=== PATIENT | female | born 1985 | race Two or more races ===

== ENCOUNTER 2023-09-18 09:25 | Outpatient (CLI) | payer OTHER | END 2023-09-18 09:30 | disposition home or self-care (01) | LOC: SONOGRAMA 09:25 | PROVIDERS: ATTEND Pathology Anatomic Pathology & Clinical Pathology | DX: D34 Benign neoplasm of thyroid gland (principal); E07.89 Other specified disorders of thyroid; E04.2 Nontoxic multinodular goiter ==

== ENCOUNTER 2024-01-11 05:32 | Inpatient (IN) | payer OTHER ==
[~2024-01-11] VITALS: Ht 165.1 cm; Wt 148.3 kg
[~2024-01-11 05:32] MED LIST: ALLEGRA ALLERG180 MG PO; BACLOFEN10 MG PO; MONTELUKAST SOD10 MG PO; PANTOPRAZOLE SO40 MG PO; PEPCID40 MG PO; PROZAC40 MG PO; SOVUNA200 MG PO; TRAM1TAB98 PO; XOPENEX HFA15 GM IH
[2024-01-11] MEDS ORDERED: DEXAMETHASONE SODIUM PHOSPHATE 4 MG/ML VIAL IV ONE (08:00)
[2024-01-11] MEDS ORDERED: ENALAPRILAT DIHYDRATE 1.25 MG/ML VIAL IV PRN (08:45)
[2024-01-11] MEDS ORDERED: ONDANSETRON HCL 2 MG/ML VIAL IV PRN (08:45)
[2024-01-11] MEDS ORDERED: TRAMADOL HCL 50 MG TABLET PO SCH (09:00)
[2024-01-11] MEDS ORDERED: ACETAMINOPHEN 500 MG GEL..CAP PO SCH (09:00)
[2024-01-11] MEDS ORDERED: MILI 0.25-0.031 EACH (09:15)
[2024-01-11] MEDS ORDERED: FLUOXETINE DR90 MG (09:15)
[2024-01-11] MEDS ORDERED: BACLOFEN20 MG (09:16)
[2024-01-11] MEDS ORDERED: LEVALBUTEROL TA15 GM (09:17)
[2024-01-11] MEDS ORDERED: MORPHINE SULFATE 4 MG/ML VIAL IV ONE (09:55)
[2024-01-11 14:06] VITALS: BP 133/78; O2SAT 97
[2024-01-11 16:35] VITALS: BP 125/83; O2SAT 97
[2024-01-11] MEDS ORDERED: CYCLOBENZAPRINE HCL 5 MG TABLET PO SCH (17:00)
[2024-01-11] MEDS ORDERED: PANTOPRAZOLE SODIUM 40 MG/VIAL VIAL IV PUSH SCH (21:00)
[2024-01-12 00:48] VITALS: BP 109/76; O2SAT 96
[2024-01-12 08:45] VITALS: BP 143/85; O2SAT 100
== END 2024-01-12 15:00 | disposition home or self-care (01) | DRG 627 ==
LOC: CIR.AMB 05:32 → O/R 08:54 → SURH 11:18 → CIR.AMB 12:45 → SURH 01-12 15:00
PROVIDERS: ADMIT Otolaryngology; ATTEND Otolaryngology
PROC: 0GTG0ZZ Resection of Left Thyroid Gland Lobe, Open Approach (ICD-10-PCS; principal; 2024-01-11 07:00)
DX: E04.1 Nontoxic single thyroid nodule (principal); Z20.822 Contact with and (suspected) exposure to COVID-19